=== PATIENT | male | born 2000 | race African-American/Black ===

== ENCOUNTER 2022-09-21 20:27 | Emergency (ER) | payer OTHER ==
[2022-09-21 20:36] VITALS: BP 123/76; PULSE 60; RESP 17; TEMP 97.6; BMI 23.6
== END 2022-09-21 22:09 | disposition home or self-care (01) ==
LOC: JERFT 20:27
PROC: 0HQ1XZZ Repair Face Skin, External Approach (ICD-10-PCS; principal; 2022-09-21)
DX: S01.111A Laceration without foreign body of right eyelid and periocular area, initial encounter (principal); W22.8XXA Striking against or struck by other objects, initial encounter; W50.0XXA Accidental hit or strike by another person, initial encounter
CPT/HCPCS: 99282-25

== ENCOUNTER 2022-09-28 16:59 | Emergency (ER) | payer OTHER ==
[2022-09-28 17:18] VITALS: BP 109/45; PULSE 70; RESP 18; TEMP 98.1; BMI 23.6
== END 2022-09-28 19:00 | disposition home or self-care (01) ==
LOC: JERFT 16:59
DX: S01.111A Laceration without foreign body of right eyelid and periocular area, initial encounter (principal); Y99.9 Unspecified external cause status; Z48.02 Encounter for removal of sutures
CPT/HCPCS: 99281-25